=== PATIENT | female | born 1935 | race Two or more races ===

== ENCOUNTER 2016-10-29 18:19 | Inpatient (IN) | payer OTHER ==
[~2016-10-29] VITALS: Ht 149.9 cm; Wt 77.1 kg
[2016-10-29 20:30] LABS: BASOPHIL % 0.4 % (0-2)
[2016-10-29 20:34] LABS: PLATELET COUNT 494 x10^3mcL (130-400)
[2016-10-29 20:49] LABS: ALBUMIN 2.8 g/dL (3.4-5.0); ALKALINE PHOSPHATASE 99 U/L (46-116); ALT/SGPT 23 U/L (14-59); AST/SGOT 27 U/L (15-37); BILIRUBIN TOTAL 0.25 mg/dL (0.20-1.00); CALCIUM 9.2 mg/dL (8.5-10.1); CARBON DIOXIDE 39.3 mmol/L (21-32); CHLORIDE SERUM 98 mmol/L (98-107); CREATININE SERUM 1.1 mg/dL (0.6-1.0); GLUCOSE SERUM 166 mg/dL (74-106); POTASSIUM SERUM 5.3 mmol/L (3.5-5.1); SODIUM SERUM 141 mmol/L (136-145); TOTAL PROTEIN, SERUM 7.6 g/dL (6.4-8.2)
[2016-10-29 20:53] LABS: rbc morphology (normal/abnorm) ABNORMAL (NORMAL)
[2016-10-29 20:56] LABS: UA SPECIFIC GRAVITY <=1.005 (1.005-1.035); microscopic required? YES; urine erythrocyte 1+ (NEGATIVE)
[2016-10-29 20:57] LABS: CK-MB 9.2 ng/mL (0-3.6)
[2016-10-29 21:45] VITALS: BP 128/69
[2016-10-29] MEDS ORDERED: NORCO1 TA2 PO (22:04)
[2016-10-29] MEDS ORDERED: MIRTAZAPINE30 M2 PO (22:05)
[2016-10-29] MEDS ORDERED: GOOD SENSE OMEP20 MG PO (22:06)
[2016-10-29] MEDS ORDERED: ELMIRON100 MG PO (22:09)
[2016-10-29 23:12] LABS: MAGNESIUM 1.8 mg/dL (1.8-2.4); PHOSPHOROUS 4.7 mg/dL (2.5-4.9)
[2016-10-29 23:24] LABS: FREE T4 1.38 ng/dL (0.76-1.46); FREE THYROXINE INDEX 3.3 ug/dL (1.4-4.5)
[2016-10-29 23:48] VITALS: BP 131/65
[2016-10-29] MEDS ORDERED: METOPROLOL TART25 M1 PO (23:57)
[2016-10-29] MEDS ORDERED: PANTOPRAZOLE SO40 M1 PO (23:57)
[2016-10-29] MEDS ORDERED: PULMICORT180 MCG/Ac INH (23:59)
[2016-10-29] MEDS ORDERED: TAMSULOSIN HYD0.4 M1 PO (23:59)
[2016-10-30] MEDS ORDERED: ELIQUIS5 MG PO
[2016-10-30] MEDS ORDERED: HYDRALAZINE HCL25 MG PO (00:01)
[2016-10-30] MEDS ORDERED: ROC1I IV (00:02)
[2016-10-30] MEDS ORDERED: CLARITIN10 MG PO (00:03)
[2016-10-30] MEDS ORDERED: LASIX20 MG PO (00:03)
[2016-10-30] MEDS ORDERED: PROVENTIL0.09 MG/A1 INH (00:04)
[2016-10-30] MEDS ORDERED: APAP500 MG PO (00:05)
[2016-10-30 00:33] LABS: T3 TOTAL 0.77 ng/mL
[2016-10-30 05:32] VITALS: BP 121/56
[2016-10-30 06:21] LABS: CALCIUM 9.2 mg/dL (8.5-10.1); CHLORIDE SERUM 100 mmol/L (98-107); CREATININE SERUM 1.2 mg/dL (0.6-1.0); GLUCOSE SERUM 117 mg/dL (74-106); POTASSIUM SERUM 4.8 mmol/L (3.5-5.1); SODIUM SERUM 144 mmol/L (136-145)
[2016-10-30 06:27] LABS: TOTAL IRON BINDING CAPACITY 282 ug/dL (250-450)
[2016-10-30 06:32] LABS: IRON 24 ug/dL (50-170)
[2016-10-30 07:07] LABS: CARBON DIOXIDE 41.3 mmol/L (21-32)
[2016-10-30 07:24] LABS: RED BLOOD CELLS 3.13 M/mm3 (4.10-5.10)
[2016-10-30 09:22] VITALS: BP 141/55
[2016-10-30 12:00] VITALS: BP 133/67
[2016-10-30 16:44] VITALS: BP 109/61
[2016-10-30 21:52] VITALS: BP 130/50
[2016-10-31 05:33] VITALS: BP 124/66
[2016-10-31 06:33] LABS: CALCIUM 8.9 mg/dL (8.5-10.1); CARBON DIOXIDE 39.1 mmol/L (21-32); CHLORIDE SERUM 96 mmol/L (98-107); CREATININE SERUM 1.3 mg/dL (0.6-1.0); GLUCOSE SERUM 93 mg/dL (74-106); POTASSIUM SERUM 4.1 mmol/L (3.5-5.1); SODIUM SERUM 138 mmol/L (136-145)
[2016-10-31 07:51] LABS: PLATELET COUNT 430 x10^3mcL (130-400); RED CELL DISTRIBUTION WIDTH 19.3 % (11.5-14.5)
[2016-10-31 09:32] VITALS: BP 116/61
[2016-10-31 13:21] VITALS: BP 118/65
[2016-10-31 16:56] VITALS: BP 115/57
[2016-10-31 22:01] VITALS: BP 120/71
[2016-11-01 06:30] VITALS: BP 125/69
[2016-11-01 08:30] VITALS: BP 125/69
[2016-11-01 08:50] VITALS: BP 126/61
[2016-11-01 12:38] VITALS: BP 135/70
[2016-11-01 16:28] VITALS: BP 118/46
[2016-11-01 21:54] VITALS: BP 133/74
[2016-11-02 06:27] VITALS: BP 160/81
[2016-11-02 06:44] LABS: BASOPHIL % 0.5 % (0-2); PLATELET COUNT 365 x10^3mcL (130-400)
[2016-11-02 06:57] LABS: CARBON DIOXIDE 39.4 mmol/L (21-32); CHLORIDE SERUM 101 mmol/L (98-107); CREATININE SERUM 1.1 mg/dL (0.6-1.0); GLUCOSE SERUM 94 mg/dL (74-106); POTASSIUM SERUM 4.4 mmol/L (3.5-5.1); SODIUM SERUM 143 mmol/L (136-145)
[2016-11-02 07:01] LABS: RED CELL DISTRIBUTION WIDTH 19.9 % (11.5-14.5)
[2016-11-02 09:42] VITALS: BP 130/71
[2016-11-02 12:33] VITALS: BP 140/82
[2016-11-02 17:02] VITALS: BP 136/61
[2016-11-02 21:00] VITALS: BP 121/72
[2016-11-03 05:17] VITALS: BP 131/73
[2016-11-03 07:11] LABS: CARBON DIOXIDE 39.2 mmol/L (21-32); CHLORIDE SERUM 100 mmol/L (98-107); CREATININE SERUM 1.3 mg/dL (0.6-1.0); GLUCOSE SERUM 96 mg/dL (74-106); POTASSIUM SERUM 4.6 mmol/L (3.5-5.1); SODIUM SERUM 141 mmol/L (136-145)
[2016-11-03 07:22] LABS: BASOPHIL % 0.2 % (0-2); PLATELET COUNT 331 x10^3mcL (130-400)
[2016-11-03 07:29] LABS: RED CELL DISTRIBUTION WIDTH 19.3 % (11.5-14.5)
[2016-11-03 09:03] VITALS: BP 148/71
[2016-11-03 12:30] VITALS: BP 142/80
[2016-11-03 17:36] VITALS: BP 133/58
[2016-11-03 21:35] VITALS: BP 120/54
[2016-11-04] VITALS (11 sets, daily range): BP systolic 115–138; BP diastolic 56–72
[2016-11-04 06:12] LABS: BASOPHIL % 0.5 % (0-2); PLATELET COUNT 297 x10^3mcL (130-400)
[2016-11-04 06:14] LABS: CALCIUM 9.2 mg/dL (8.5-10.1); CHLORIDE SERUM 101 mmol/L (98-107); CREATININE SERUM 1.3 mg/dL (0.6-1.0); GLUCOSE SERUM 119 mg/dL (74-106); POTASSIUM SERUM 4.6 mmol/L (3.5-5.1); SODIUM SERUM 139 mmol/L (136-145)
[2016-11-04 06:40] LABS: RED CELL DISTRIBUTION WIDTH 19.7 % (11.5-14.5)
[2016-11-04 06:45] LABS: CARBON DIOXIDE 42.9 mmol/L (21-32)
[2016-11-04 17:40] LABS: SOURCE FLUID THORACENTESIS
[2016-11-04 22:31] LABS: APPEARANCE FLUID TURBID; COLOR FLUID REDISH YELLOW; SOURCE FLUID THORACENTESIS
[2016-11-04 22:34] LABS: RBC FLUID 4636 /cumm; WBC FLUID 206 /cumm
[2016-11-04 22:35] LABS: LYMPHOCYTE FLUID 82 %; MONOCYTE FLUID 16 %
[2016-11-05 05:17] VITALS: BP 103/55
[2016-11-05 06:21] LABS: BASOPHIL % 0.5 % (0-2); PLATELET COUNT 258 x10^3mcL (130-400)
[2016-11-05 06:43] LABS: RED CELL DISTRIBUTION WIDTH 19.1 % (11.5-14.5)
[2016-11-05 10:05] VITALS: BP 104/63
[2016-11-05 14:18] VITALS: BP 119/58
[2016-11-05 17:39] VITALS: BP 128/66
[2016-11-05 21:52] VITALS: BP 107/46
[2016-11-06 05:43] VITALS: BP 115/64
[2016-11-06 09:06] VITALS: BP 119/69
[2016-11-06 09:10] VITALS: BP 103/63
[2016-11-06] MEDS ORDERED: IPRATROPIUM BROM3 M2 HHN (10:12)
[2016-11-06] MEDS ORDERED: ELIQUIS2.5 MG PO (10:13)
[2016-11-06] MEDS ORDERED: MUCINEX600 MG PO (10:14)
[2016-11-06] MEDS ORDERED: LAC PO (10:15)
[2016-11-06] MEDS ORDERED: GLU5 PO (10:16)
[2016-11-06 10:38] VITALS: BP 103/63
== END 2016-11-06 12:15 | disposition home or self-care (01) | DRG 137 ==
LOC: ED 18:19 → DU 20:44
PROVIDERS: Emergency Medicine; Family Medicine; ADMIT Family Medicine
PROC: 0W9B3ZZ Drainage of Left Pleural Cavity, Percutaneous Approach (ICD-10-PCS; principal; 2016-11-04)
DX: J69.0 Pneumonitis due to inhalation of food and vomit (principal); N17.0 Acute kidney failure with tubular necrosis; J96.00 Acute respiratory failure, unspecified whether with hypoxia or hypercapnia; E43 Unspecified severe protein-calorie malnutrition; I50.43 Acute on chronic combined systolic (congestive) and diastolic (congestive) heart failure; D68.69 Other thrombophilia; E11.65 Type 2 diabetes mellitus with hyperglycemia; E87.5 Hyperkalemia; I11.0 Hypertensive heart disease with heart failure; I48.2 Chronic atrial fibrillation; D64.9 Anemia, unspecified; G47.33 Obstructive sleep apnea (adult) (pediatric); E66.9 Obesity, unspecified; M06.9 Rheumatoid arthritis, unspecified; Z99.3 Dependence on wheelchair; Z68.37 Body mass index [BMI] 37.0-37.9, adult; Z85.3 Personal history of malignant neoplasm of breast; Z92.21 Personal history of antineoplastic chemotherapy
CPT/HCPCS: 32555; 36600; 82962; 83880; 84439; 94150; 97530-GP; C1729; J1940; J1956; J2001; J3490; J7030; J7620; J7626; Q0092

== ENCOUNTER 2017-01-13 17:17 | Emergency (ER) | payer OTHER ==
[~2017-01-13 17:17] MED LIST: APAP500 MG PO; CLARITIN10 MG PO; ELIQUIS2.5 MG PO; ELIQUIS5 MG PO; ELMIRON100 MG PO; GLU5 PO; GOOD SENSE OMEP20 MG PO; HYDRALAZINE HCL25 MG PO; IPRATROPIUM BROM3 M2 HHN; LAC PO; LASIX20 MG PO; METOPROLOL TART25 M1 PO; MIRTAZAPINE30 M2 PO; MUCINEX600 MG PO; NORCO1 TA2 PO; PANTOPRAZOLE SO40 M1 PO; PROVENTIL0.09 MG/A1 INH; PULMICORT180 MCG/Ac INH; ROC1I IV; TAMSULOSIN HYD0.4 M1 PO
[2017-01-13 17:36] VITALS: BP 140/63
[2017-01-13 19:14] LABS: UA SPECIFIC GRAVITY <=1.005 (1.005-1.035); microscopic required? YES; urine erythrocyte NEGATIVE (NEGATIVE)
== END 2017-01-13 18:38 | disposition home or self-care (01) ==
LOC: ED 17:17
PROVIDERS: Emergency Medicine
DX: Z46.6 Encounter for fitting and adjustment of urinary device (principal); Z88.0 Allergy status to penicillin; I50.9 Heart failure, unspecified; I10 Essential (primary) hypertension; I48.91 Unspecified atrial fibrillation; Z85.3 Personal history of malignant neoplasm of breast

== ENCOUNTER 2017-01-13 19:33 | Inpatient (IN) | payer OTHER ==
[~2017-01-13] VITALS: Ht 149.9 cm; Wt 75.4 kg
[2017-01-13 21:11] LABS: CALCIUM 9.3 mg/dL (8.5-10.1); CARBON DIOXIDE 30.7 mmol/L (21-32); CHLORIDE SERUM 97 mmol/L (98-107); CREATININE SERUM 1.3 mg/dL (0.6-1.0); GLUCOSE SERUM 140 mg/dL (74-106); POTASSIUM SERUM 4.1 mmol/L (3.5-5.1); SODIUM SERUM 134 mmol/L (136-145)
[2017-01-13 21:12] LABS: BASOPHIL % 0.4 % (0-2); PLATELET COUNT 259 x10^3mcL (130-400)
[2017-01-13 21:16] LABS: ALBUMIN 3.4 g/dL (3.4-5.0); ALKALINE PHOSPHATASE 106 U/L (46-116); ALT/SGPT 17 U/L (14-59); AST/SGOT 35 U/L (15-37); BILIRUBIN TOTAL 0.46 mg/dL (0.20-1.00); TOTAL PROTEIN, SERUM 8.2 g/dL (6.4-8.2)
[2017-01-13 21:17] LABS: RED CELL DISTRIBUTION WIDTH 16.7 % (11.5-14.5)
[2017-01-13 21:27] LABS: UA SPECIFIC GRAVITY <=1.005 (1.005-1.035); microscopic required? YES; urine erythrocyte TRACE (NEGATIVE)
[2017-01-13 22:03] VITALS: BP 154/100
[2017-01-13 22:11] LABS: MAGNESIUM 1.8 mg/dL (1.8-2.4); PHOSPHOROUS 4.6 mg/dL (2.5-4.9)
[2017-01-13 22:14] LABS: CHOLESTEROL/HDL RATIO 4.4
[2017-01-13 22:18] LABS: FREE T4 1.18 ng/dL (0.76-1.46); FREE THYROXINE INDEX 3.2 ug/dL (1.4-4.5); T4(THYROXINE) 8.3 ug/dL (4.7-13.3)
[2017-01-13 22:34] LABS: T3 TOTAL 0.69 ng/mL
[2017-01-14] VITALS (7 sets, daily range): BP systolic 95–136; BP diastolic 38–69
[2017-01-15 05:45] VITALS: BP 141/59
[2017-01-15 06:17] LABS: BASOPHIL % 0.8 % (0-2); PLATELET COUNT 219 x10^3mcL (130-400)
[2017-01-15 06:22] LABS: CALCIUM 8.5 mg/dL (8.5-10.1); CARBON DIOXIDE 29.5 mmol/L (21-32); CHLORIDE SERUM 102 mmol/L (98-107); GLUCOSE SERUM 90 mg/dL (74-106); MAGNESIUM 2.1 mg/dL (1.8-2.4); SODIUM SERUM 139 mmol/L (136-145)
[2017-01-15 06:25] LABS: RED CELL DISTRIBUTION WIDTH 17.2 % (11.5-14.5)
[2017-01-15 09:32] VITALS: BP 112/41
[2017-01-15 10:04] VITALS: BP 112/41
[2017-01-15] MEDS ORDERED: BACTRIM DS1 TAB PO ×2 (11:43→12:10)
[2017-01-15 11:55] VITALS: BP 122/53
== END 2017-01-15 14:35 | disposition home health service (06) | DRG 48 ==
LOC: ED 19:33 → DU 20:55
PROVIDERS: Emergency Medicine; ADMIT Family Medicine Sports Medicine
DX: G90.9 Disorder of the autonomic nervous system, unspecified (principal); N17.0 Acute kidney failure with tubular necrosis; I48.91 Unspecified atrial fibrillation; E86.0 Dehydration; N39.0 Urinary tract infection, site not specified; I11.0 Hypertensive heart disease with heart failure; I50.9 Heart failure, unspecified; J44.9 Chronic obstructive pulmonary disease, unspecified; E87.1 Hypo-osmolality and hyponatremia; M19.90 Unspecified osteoarthritis, unspecified site; D63.8 Anemia in other chronic diseases classified elsewhere; Z68.33 Body mass index [BMI] 33.0-33.9, adult; Z85.3 Personal history of malignant neoplasm of breast; Z88.0 Allergy status to penicillin; E78.5 Hyperlipidemia, unspecified; E66.9 Obesity, unspecified
CPT/HCPCS: 82962; 83880; 84439; 97110-GP; J0696; J3475; J3535; J7030; J7620; Q0092

== ENCOUNTER 2017-12-11 22:31 | Inpatient (IN) | payer OTHER ==
[~2017-12-11] VITALS: Ht 149.9 cm; Wt 74.5 kg
[~2017-12-11 22:31] MED LIST changes: +BACTRIM DS1 TAB PO
[2017-12-11 23:15] VITALS: Ht 149.9 cm; Wt 74.5 kg
[2017-12-11 23:18] LABS: microscopic required? YES; urine erythrocyte 2+ (NEGATIVE)
[2017-12-11 23:19] LABS: BASOPHIL % 0.7 % (0-2); PLATELET COUNT 296 x10^3mcL (130-400)
[2017-12-11 23:21] LABS: RED CELL DISTRIBUTION WIDTH 19.5 % (11.5-14.5)
[2017-12-11 23:50] LABS: T3 TOTAL 0.58 ng/mL
[2017-12-11] MEDS ORDERED: NATURE'S BLEN1000 IU PO (23:56)
[2017-12-12] LABS: FREE T4 1.26 ng/dL (0.76-1.46); FREE THYROXINE INDEX 3.4 ug/dL (1.4-4.5); T4(THYROXINE) 8.7 ug/dL (4.7-13.3)
[2017-12-12 00:04] LABS: CK-MB 2.4 ng/mL (0-3.6)
[2017-12-12 00:06] LABS: ERYTHROCYTE SED RATE 57 mm/hr (0-30)
[2017-12-12 00:17] LABS: ALKALINE PHOSPHATASE 127 U/L (46-116); ALT/SGPT 47 U/L (14-59); AST/SGOT 272 U/L (15-37); BILIRUBIN TOTAL 0.67 mg/dL (0.20-1.00); C REACTIVE PROTEIN 7.5 mg/dL (<=0.9); CALCIUM 9.1 mg/dL (8.5-10.1); CARBON DIOXIDE 22.5 mmol/L (21-32); CHLORIDE SERUM 106 mmol/L (98-107); CREATININE SERUM 1.9 mg/dL (0.6-1.0); GLUCOSE SERUM 93 mg/dL (74-106); POTASSIUM SERUM 4.2 mmol/L (3.5-5.1); SODIUM SERUM 142 mmol/L (136-145); TOTAL PROTEIN, SERUM 7.6 g/dL (6.4-8.2)
[2017-12-12 00:18] LABS: ALBUMIN 2.7 g/dL (3.4-5.0)
[2017-12-12 02:13] VITALS: BP 131/66
[2017-12-12 06:24] VITALS: BP 111/58
[2017-12-12 09:02] VITALS: BP 115/61
[2017-12-12 12:14] VITALS: BP 115/74
[2017-12-12 17:20] VITALS: BP 120/76
[2017-12-12 20:57] VITALS: BP 139/59
[2017-12-13 05:55] VITALS: BP 110/65
[2017-12-13 06:11] LABS: BASOPHIL % 0.5 % (0-2); PLATELET COUNT 232 x10^3mcL (130-400)
[2017-12-13 06:17] LABS: CALCIUM 8.2 mg/dL (8.5-10.1); CARBON DIOXIDE 21.3 mmol/L (21-32); CHLORIDE SERUM 109 mmol/L (98-107); CREATININE SERUM 1.8 mg/dL (0.6-1.0); GLUCOSE SERUM 171 mg/dL (74-106); POTASSIUM SERUM 3.3 mmol/L (3.5-5.1); SODIUM SERUM 141 mmol/L (136-145)
[2017-12-13 06:35] LABS: RED CELL DISTRIBUTION WIDTH 19.2 % (11.5-14.5)
[2017-12-13 09:44] VITALS: BP 137/88
[2017-12-13 13:40] VITALS: BP 109/58
[2017-12-13 18:06] VITALS: BP 134/60
[2017-12-13 20:59] VITALS: BP 112/79
[2017-12-14 05:50] VITALS: BP 142/80
[2017-12-14 06:47] LABS: BASOPHIL % 0.6 % (0-2); PLATELET COUNT 243 x10^3mcL (130-400)
[2017-12-14 06:52] LABS: CALCIUM 8.5 mg/dL (8.5-10.1); CARBON DIOXIDE 20.2 mmol/L (21-32); CHLORIDE SERUM 114 mmol/L (98-107); CREATININE SERUM 1.5 mg/dL (0.6-1.0); GLUCOSE SERUM 158 mg/dL (74-106); POTASSIUM SERUM 3.5 mmol/L (3.5-5.1); SODIUM SERUM 145 mmol/L (136-145)
[2017-12-14 06:58] LABS: RED CELL DISTRIBUTION WIDTH 19.5 % (11.5-14.5)
[2017-12-14 06:59] LABS: rbc morphology (normal/abnorm) ABNORMAL (NORMAL)
[2017-12-14 09:07] VITALS: BP 150/78
[2017-12-14 12:54] VITALS: BP 137/59
[2017-12-14 16:33] LABS: IRON 27 ug/dL (50-170)
[2017-12-14 16:34] LABS: TOTAL IRON BINDING CAPACITY 235 ug/dL (250-450)
[2017-12-14 16:52] VITALS: BP 153/60
[2017-12-14 20:35] VITALS: BP 139/78
[2017-12-15 05:43] VITALS: BP 152/78
[2017-12-15 06:13] LABS: ALKALINE PHOSPHATASE 119 U/L (46-116); ALT/SGPT 67 U/L (14-59); AST/SGOT 937 U/L (15-37); BILIRUBIN TOTAL 0.8 mg/dL (0.20-1.00); CALCIUM 8.1 mg/dL (8.5-10.1); CARBON DIOXIDE 22.2 mmol/L (21-32); CHLORIDE SERUM 117 mmol/L (98-107); CREATININE SERUM 1.4 mg/dL (0.6-1.0); GLUCOSE SERUM 155 mg/dL (74-106); POTASSIUM SERUM 3.4 mmol/L (3.5-5.1); SODIUM SERUM 150 mmol/L (136-145); TOTAL PROTEIN, SERUM 6.5 g/dL (6.4-8.2)
[2017-12-15 06:14] LABS: ALBUMIN 2.1 g/dL (3.4-5.0)
[2017-12-15 06:50] LABS: BASOPHIL % 0.5 % (0-2); PLATELET COUNT 217 x10^3mcL (130-400)
[2017-12-15 08:22] LABS: RED CELL DISTRIBUTION WIDTH 22.1 % (11.5-14.5)
[2017-12-15 08:23] LABS: rbc morphology (normal/abnorm) ABNORMAL (NORMAL)
[2017-12-15 08:24] LABS: acanthocyte (spur cell) 2+; ovalocyte/elliptocyte 2+
[2017-12-15 09:47] VITALS: BP 133/105
[2017-12-15 13:17] VITALS: BP 121/82
[2017-12-15 17:40] VITALS: BP 149/93
[2017-12-15 20:17] VITALS: BP 143/86
[2017-12-16] VITALS (8 sets, daily range): BP systolic 116–166; BP diastolic 71–85
[2017-12-16 05:52] LABS: PLATELET COUNT 198 x10^3mcL (130-400)
[2017-12-16 06:27] LABS: CARBON DIOXIDE 21.7 mmol/L (21-32); CHLORIDE SERUM 120 mmol/L (98-107); CREATININE SERUM 1.4 mg/dL (0.6-1.0); GLUCOSE SERUM 155 mg/dL (74-106); POTASSIUM SERUM 3.1 mmol/L (3.5-5.1); SODIUM SERUM 155 mmol/L (136-145)
[2017-12-16 06:36] LABS: RED CELL DISTRIBUTION WIDTH 22.3 % (11.5-14.5)
[2017-12-16 08:36] LABS: BAND NEUTROPHIL 0 % (0-10); MONOCYTE 4 % (0-7); SEGMENTED NEUTROPHILS 89 % (37-75)
[2017-12-16 08:37] LABS: ATYPICAL LYMPH 1 %
[2017-12-16 08:39] LABS: PLATELET MORPHOLOGY LARGE PLATELET SEEN; acanthocyte (spur cell) 1+; rbc morphology (normal/abnorm) ABNORMAL (NORMAL)
[2017-12-17 05:41] VITALS: BP 124/66
[2017-12-17 06:59] LABS: CALCIUM 7.9 mg/dL (8.5-10.1); CARBON DIOXIDE 20.5 mmol/L (21-32); CHLORIDE SERUM 120 mmol/L (98-107); CREATININE SERUM 1.5 mg/dL (0.6-1.0); GLUCOSE SERUM 199 mg/dL (74-106); POTASSIUM SERUM 3.2 mmol/L (3.5-5.1); SODIUM SERUM 155 mmol/L (136-145)
[2017-12-17 07:48] LABS: PLATELET COUNT 174 x10^3mcL (130-400)
[2017-12-17 07:52] LABS: BASOPHIL % 0 % (0-2); RED CELL DISTRIBUTION WIDTH 22.2 % (11.5-14.5)
[2017-12-17 08:21] LABS: burr cell (echinocyte) 1+; rbc morphology (normal/abnorm) ABNORMAL (NORMAL); schistocyte (helmet cell) 1+; target cell (codocyte) 1+; tear drop cell (dacryocyte) 1+
[2017-12-17 08:29] VITALS: BP 115/71
[2017-12-17 10:04] LABS: BILIRUBIN DIRECT 0.43 mg/dL (0.0-0.2); BILIRUBIN TOTAL 0.86 mg/dL (0.20-1.00); TOTAL PROTEIN, SERUM 6.4 g/dL (6.4-8.2)
[2017-12-17 11:30] VITALS: BP 104/70
[2017-12-17 16:16] VITALS: BP 121/67
[2017-12-17 17:07] VITALS: BP 104/70
[2017-12-17 20:34] VITALS: BP 132/69
== END 2017-12-17 21:54 | DRG 720 ==
LOC: ED 22:31 → DU 12-12 00:28
PROVIDERS: Internal Medicine; Internal Medicine Gastroenterology; Specialist
PROC: 0DH63UZ Insertion of Feeding Device into Stomach, Percutaneous Approach (ICD-10-PCS; principal; 2017-12-16 10:30)
DX: A41.9 Sepsis, unspecified organism (principal); G93.41 Metabolic encephalopathy; E87.0 Hyperosmolality and hypernatremia; I48.2 Chronic atrial fibrillation; R13.10 Dysphagia, unspecified; E86.0 Dehydration; I50.32 Chronic diastolic (congestive) heart failure; I11.0 Hypertensive heart disease with heart failure; F03.90 Unspecified dementia, unspecified severity, without behavioral disturbance, psychotic disturbance, mood disturbance, and anxiety; D50.9 Iron deficiency anemia, unspecified; N39.0 Urinary tract infection, site not specified; I44.0 Atrioventricular block, first degree; I25.10 Atherosclerotic heart disease of native coronary artery without angina pectoris; F17.210 Nicotine dependence, cigarettes, uncomplicated; R63.0 Anorexia; M19.90 Unspecified osteoarthritis, unspecified site; Z66 Do not resuscitate; Z68.28 Body mass index [BMI] 28.0-28.9, adult; Z86.711 Personal history of pulmonary embolism; Z85.3 Personal history of malignant neoplasm of breast; Z92.21 Personal history of antineoplastic chemotherapy; Z88.0 Allergy status to penicillin; Z80.9 Family history of malignant neoplasm, unspecified; Z90.49 Acquired absence of other specified parts of digestive tract; Z79.01 Long term (current) use of anticoagulants; Z23 Encounter for immunization
CPT/HCPCS: 43235; 82962; 84439; 87804; 90658; 90732; 92610-GN; J0713; J1610; J1940; J1956; J2250; J2310; J3010; J3480; J3490; J7030; J7040; J7042; Q0092